=== PATIENT | female | born 1965 | race Caucasian/White ===

== ENCOUNTER 2020-05-27 09:09 | Emergency (ER) | payer OTHER, SELFPAY ==
--- NOTE | ~2020-05-27 | XR_ITS ---
EXAMINATION: XR chest 2V EXAM DATE: 05/27/2020 09:41 INDICATION: Congestion, burning In Chest Since Covid In 02/2020 . TECHNIQUE: Frontal and lateral projections of the chest obtained and reviewed. There is no prior tal dy for comparison. FINDINGS: Right middle lobe granuloma. The lungs are otherwise clear. There are no pleural effusion s. The cardiomediastinal silhouette is within normal limits. There is no pneumothorax suspected. T he bones and soft tissues are unremarkable. IMPRESSION: No acute cardiopulmonary findings. Reviewed, dictated and finalized at location A. OR MAP
[2020-05-27 09:19] VITALS: BP 137/86; PULSE 73; RESP 18; TEMP 36.5; O2SAT 100
--- NOTE | 2020-05-27 09:33 | ED.URI ---
HPI - URI/Sore Throat General Chief Complaint: Urogenital-Female Stated Complaint: bloody urine and right lung pain Time Seen by Provider: 05/27/20 09:33 Source: patient Mode of arrival: ambulatory Limitations: no limitations History of Present Illness HPI Narrative: Meryl España is a 54 yo female with a PMH of vitamin deficiency and anxiety, who comes with blood in urine that started this AM along with lower R back pain and burning in chest with cough with yellow sputum since had covid in February. Dx with covid February 26, released from quarantine Mar 29. Patient is concerned that she has infection that is untreated or has more than a cold Related Data Home Medications Medication Instructions Recorded Confirmed alprazolam 0.25 mg PO BID PRN 05/27/20 05/27/20 Allergies Allergy/AdvReac Type Severity Reaction Status Date / Time Penicillins Allergy Unknown Unknown Verified 05/27/20 09:33 Review of Systems Review of Systems: Narrative: CONSTITUTIONAL: Denies fever, chills, sweats. EYES: Denies visual changes, redness, discharge. ENT: Denies rhinorrhea, congestion, sore throat, otalgia. CARDIOVASCULAR: Denies chest pain, palpitations, edema. RESPIRATORY: Denies dyspnea, wheezing, productive cough GASTROINTESTINAL: Denies abdominal pain, nausea, vomiting, diarrhea. GENITOURINARY: has dysuria, hematuria, abnormal discharge SKIN: Denies rash or itching. NEUROLOGIC: Denies numbness, or focal weakness. PSYCHIATRIC: Denies anxiety or depression. [facility] Past Medical History Medical History Anxiety Vitamin D deficiency Family History Family History Other Hypertension Social History Social History (Updated 05/27/20 @ 09:39 by Samina Richards CNP) Smoking status: Never smoker Alcohol intake: current Comments At time of signature, I agree with nursing past medical, surgical, social and family history. There is no relevant family history pertinent to the presenting complaint. Exam Narrative: Exam Narrative: GENERAL: This is a well-nourished, well-developed patient, in mild distress. HEAD: normocephalic, atraumatic. EYES: Sclera clear/white. Vision is grossly intact. EARS: External ears normal, Hearing grossly intact. NOSE: External nose normal without nasal discharge, nares without redness, no rhinorrhea. THROAT: Mucous membranes moist, posterior pharynx mild erythema NECK: Neck supple, non-tender CARDIOVASCULAR: Regular rate and rhythm without murmurs, gallops, or rubs. RESPIRATORY: Clear to auscultation. Breath sounds equal bilaterally. occ mild wheezes, no rales, or rhonchi. GASTROINTESTINAL: Abdomen soft, non-tender, SKIN: warm, intact with no suspicious lesions or rash, good texture and turgor. NEURO: awake, alert, and oriented to person, place and time. There were no obvious focal neurologic abnormalities. Steady gait EXTREMITIES: Normal range of motion. BACK: Nontender without deformity Course Course Emergency Course: Came to clinic with complaints of cough with yellow sputum and lower abdominal pain back pain with blood in urine Chest x-ray no acute cardiopulmonary disease Urine dipstick positive for blood but negative for any other nitrate or leukocyte esterase Started on Bactrim, explained to patient that with no other substances in urine that it is possibility that she has a kidney stone. If she develops pain again she should go to the emergency room to get CT renal done. She should increase her fluid intake Vital Signs Vital signs: Vital Signs Temperature 97.7 F 05/27/20 09:19 Pulse Rate 73 05/27/20 09:19 Respiratory Rate 18 05/27/20 09:19 Blood Pressure 137/86 05/27/20 09:19 Pulse Oximetry 100 05/27/20 09:19 Temperature 97.7 F 05/27/20 09:19 Pulse Rate 73 05/27/20 09:19 Respiratory Rate 18 05/27/20 09:19 Blood Pressure 137/86 05/27/20 0
== END 2020-05-27 10:06 | disposition home or self-care (01) ==
PROVIDERS: Emergency Provider Nurse Practitioner
DX: R05 Cough (principal); R31.0 Gross hematuria; F41.9 Anxiety disorder, unspecified; Z86.19 Personal history of other infectious and parasitic diseases
CPT/HCPCS: 71046; 81003; 99213; G0463

== ENCOUNTER 2021-06-17 12:27 | Emergency (ER) | payer OTHER, SELFPAY ==
--- NOTE | ~2021-06-17 | XR_ITS ---
EXAMINATION: XR chest 2V DATE: 06/17/2021 13:30 INDICATION: Chest tightness, cough, prior tobacco use TECHNIQUE: PA and lateral views of the chest are obtained. COMPARISON: 05/27/2020 FINDINGS: The lungs are free of acute opacities. There is scarring in the lung apices. Calcified pulm onary nodules and calcified mediastinal lymph nodes are consistent with old granulomatous disease. Th ere is no pleural effusion or pneumothorax. The heart size is normal. There is moderate thoracic spon dylosis. IMPRESSION: 1. No acute cardiopulmonary abnormality. Reviewed, dictated and finalized at location A. T [facility]
[2021-06-17 12:32] VITALS: BP 118/75; PULSE 80; RESP 16; TEMP 37.1; O2SAT 99
[2021-06-17] MEDS: IPRATROPIUM BR 0.02% INH SOLN 0.5 MG/2.5 ML VIAL INHALATION (13:55)
[2021-06-17] MEDS: ALBUTEROL SULFATE NEB 2.5 MG/3 ML INH INHALATION (13:56)
[2021-06-17 14:30] VITALS: PULSE 80; RESP 20; O2SAT 98
--- NOTE | 2021-06-17 14:31 | ED.URI ---
HPI - URI/Sore Throat General Chief Complaint: Upper Respiratory Infection Stated Complaint: can't catch her breath Time Seen by Provider: 06/17/21 13:36 Source: patient and RN notes reviewed Mode of arrival: ambulatory Limitations: no limitations History of Present Illness HPI Narrative: Patient presents today complaining of shortness of breath, difficulty taking a deep breath, postnasal drip, nasal congestion, and occasional cough x6 days. Patient has been using her inhaler without relief. She has not been taking any [id number] medications. History of asthma. Patient had COVID-19 1 year ago and since that time she has been a long hauler. Related Data Home Medications Medication Instructions Recorded Confirmed alprazolam 0.25 mg PO BID PRN 05/27/20 06/17/21 albuterol sulfate 2 puff INHALATION Q4H PRN 06/17/21 06/17/21 ezetimibe 10 mg PO DAILY 06/17/21 06/17/21 fluticasone propion-salmeterol 1 inh INHALATION BID 06/17/21 06/17/21 [Wixela Inhub] fluticasone propionate See Rx Instructions .ROUTE .COMPLEX 06/17/21 06/17/21 meloxicam 15 mg PO DAILY 06/17/21 06/17/21 omeprazole 40 mg PO DAILY 06/17/21 06/17/21 ropinirole 1 mg PO DAILY 06/17/21 06/17/21 semaglutide [Ozempic] See Rx Instructions .ROUTE .COMPLEX 06/17/21 06/17/21 sertraline 100 mg PO DAILY 06/17/21 06/17/21 Allergies Allergy/AdvReac Type Severity Reaction Status Date / Time Penicillins Allergy Unknown Unknown Verified 06/17/21 13:17 Review of Systems Review of Systems: CONSTITUTIONAL: Denies body aches, fever, chills, or sweats. EYES: Denies visual changes, redness, or discharge. ENT: Denies rhinorrhea, sore throat, or otalgia.+ Congestion, postnasal drip CARDIOVASCULAR: Denies chest pain, palpitations, or edema. RESPIRATORY: + Cough, occasional cough GASTROINTESTINAL: Denies abdominal pain, nausea, vomiting, or diarrhea. GENITOURINARY: Denies dysuria or hematuria. SKIN: Denies rash, itching, or wounds. MUSCULOSKELETAL: Denies back pain, joint pain, or myalgia. NEUROLOGIC: Denies headache, numbness, tingling, or weakness. PSYCH: Denies depression or anxiety. [facility] Past Medical History Medical History (Updated 06/17/21 @ 14:35 by Marii Padron, [facility], ) Anxiety COVID-19 [facility]arita [place]terro[place] Personal history of COVID-19 Vitamin D deficiency Family History Family History Other Hypertension Social History Social History (Updated 05/27/20 @ 09:39 by Samina Richards CNP) Smoking status: Never smoker Alcohol intake: current Comments At time of signature, I have reviewed and agree with nursing past medical, surgical, social and family history unless otherwise noted. Please see nursing chart for further information. There is no relevant family history pertinent to the presenting complaint Exam Narrative: GENERAL: Well-appearing, well-nourished, and in no acute distress. HEAD: Normocephalic, atraumatic. EYES: EOMI. No redness or drainage. Conjunctivae normal. ENT: Mucous membranes pink and moist. Nares congested. No rhinorrhea. TMs normal bilaterally. Throat normal. Uvula midline. NECK: Normal AROM. Supple. No lymphadenopathy. CHEST: Clear to auscultation, but slightly labored. HEART: Regular rate and rhythm. No murmur appreciated. Normal peripheral pulses. EXTREMITIES: Normal range of motion. No edema. SKIN: Warm, dry, no rash. Capillary refill normal. Normal skin turgor. NEURO: No focal deficits. Alert and oriented x3. Gait steady. PSYCH: Normal affect. No signs of depression or anxiety. Course Course Emergency Course: Slight relief after DuoNeb. Vital Signs Vital signs: Vital Signs Temperature 98.8 F 06/17/21 12:32 Pulse Rate 80 06/17/21 12:32 Respiratory Rate 16 06/17/21 12:32 Blood Pressure 118/75 06/17/21 12:32 Pulse Oximetry 99 06/17/21 12:32 Temperature 98.8 F 06/17/21 12:32 Pulse Rate 80 06/17/21 12:32 Respiratory Rate 1
== END 2021-06-17 14:40 | disposition home or self-care (01) ==
PROVIDERS: Emergency Provider Nurse Practitioner; PCP Family Medicine
DX: J40 Bronchitis, not specified as acute or chronic (principal); J06.9 Acute upper respiratory infection, unspecified; Z86.16 Personal history of COVID-19; E55.9 Vitamin D deficiency, unspecified; F41.9 Anxiety disorder, unspecified
CPT/HCPCS: 71046; 94640; 99213; G0463